=== PATIENT | male | born 1975 | race Caucasian/White ===

== ENCOUNTER 2017-01-04 15:07 | Outpatient (CLI) | payer OTHER ==
--- NOTE | 2017-01-04 16:01 | Diagnostic Imaging Report ---
Indication: Right elbow pain Technique: 3 views of the right elbow Comparison: None Findings: No acute fractures. No dislocations. Well-corticated ossific density adjacent to the olecranon on the lateral view may reflect old avulsion injury or dystrophic ossification Impression: No acute process
== END 2017-01-04 17:07 | disposition home or self-care (01) ==
LOC: RAD 15:07
DX: M79.631 Pain in right forearm (principal)

== ENCOUNTER → 2018-06-25 | Outpatient (CLI) | payer OTHER ==
--- NOTE | 2018-06-25 15:37 | Diagnostic Imaging Report ---
Indication: Neuropathy, neck pain status post injury on Monday Technique: Sagittal T1 FLAIR PROPELLER, sagittal T2 PROPELLOR, sagittal STIR, axial T2 PROPELLER, axial 3D COSMIC ASPIR images were obtained through the cervical spine Comparison: none Findings: The bony alignment is normal. The vertebral body heights are preserved. The disc spaces are preserved. The vertebral marrow signal is normal. At C3-4, there is mild right and moderate left neural foraminal narrowing. No significant disc bulge or protrusion or spinal stenosis. At C4-5, there is minimal broad-based posterior central disc protrusion with a small high intensity zone, which does not significantly narrow the spinal canal. The neural foramina are preserved. At C5-6, there is circumferential annular bulge. This does not significantly narrow the spinal canal. There is mild to moderate bilateral neural foraminal stenosis at this level, due predominantly uncinate hypertrophy. At C6-7, there is mild circumferential annular bulge. This does not significantly narrow the spinal canal. There is mild narrowing of the neural foramina bilaterally. At C7-T1, no significant disc bulge or protrusion, spinal stenosis, or neural foraminal narrowing. Impression: No acute bony trauma Mild degenerative changes as detailed above
--- NOTE | 2018-06-25 18:07 | Diagnostic Imaging Report ---
EXAM: MR Right Upper Extremity Without Intravenous Contrast, Shoulder CLINICAL HISTORY: PAIN TECHNIQUE: Multiplanar magnetic resonance images of the right shoulder without intravenous contrast. COMPARISON: No relevant prior studies available. FINDINGS: TENDONS: Supraspinatus: Unremarkable. Infraspinatus: Unremarkable. Subscapularis: Unremarkable. Teres minor: Unremarkable. Biceps brachii, long head: Intact long head of the biceps tendon. LIGAMENTS: Glenohumeral: Unremarkable. Muscles: Normal appearance of the muscles. Fluid: Tiny amount of fluid in the subacromial/submitted bursa is nonspecific but could potentially represent bursitis in the right clinical setting. Cartilage: Unremarkable. Glenoid labrum: No labral tear. Bones/joints: No rotator cuff tear. 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 Mild to moderate degenerative changes at the acromioclavicular joint. Type II acromion with slightly curved undersurface. No os acromiale. IMPRESSION: No rotator cuff or labral tear. Tiny amount of fluid in the subacromial/submitted bursa is nonspecific but could potentially represent bursitis in the right clinical setting. 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 Mild to moderate degenerative changes at the acromioclavicular joint. These findings may contribute to impingement signs or symptoms.
== END | disposition home or self-care (01) ==
LOC: MRI 09:13
DX: G56.90 Unspecified mononeuropathy of unspecified upper limb (principal)
CPT/HCPCS: 70250; 72141

== ENCOUNTER 2020-04-08 08:40 | Inpatient (IN) | payer OTHER ==
[~2020-04-08] VITALS: Ht 153.9 cm; Wt 78.0 kg
[2020-04-08] MEDS ORDERED: Morphine Sulfate 4mg/ml Inj (IV USE ONLY) IVP ONE (09:00)
[2020-04-08] MEDS ORDERED: Omnipaque-300 100ml vial INJ PRN (09:00)
--- NOTE | 2020-04-08 09:06 | Emergency Room Report ---
History of Present Illness General Chief Complaint: Nausea, Vomiting, and Diarrhea Present Illness HPI Disclaimer: Please note that this report is being documented using [employer]. This can lead to erroneous entry secondary to incorrect interpretation by the dictating instrument. HPI: 44-year-old male history of HIV on medication presents from home due to abdominal cramping with diarrhea and vomiting. This started last night around 8 PM. He reports 9 out of 10 abdominal cramping that is nonradiating. Patient states he feels feverish with chills. No coughing or shortness of breath. Denies sick contacts. He has a history of appendectomy as a child. No urinary complaints. 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 COVID-19 Screening: Negative COVID-19 COVID-19 Testing Source: nasal Patient History Reviewed Nursing Documentation: PMH: Agreed; PSxH: Agreed Review of Systems All Other Systems: negative except mentioned in HPI Physical Exam Vital Signs Date Time Temp Pulse Resp B/P (MAP) Pulse Ox O2 Delivery O2 Flow Rate FiO2 04/08/20 08:46 99.0 133 20 108/73 (85) 99 Room Air Sp02 EP Interpretation: reviewed, normal General Appearance: well appearing, no apparent distress Head: normocephalic, atraumatic Eyes: bilateral eye PERRL, bilateral eye EOMI ENT: hearing grossly normal, moist mucus membranes Neck: full range of motion, supple Respiratory: lungs clear, normal breath sounds, no rhonchi, no respiratory distress, no retraction, no wheezing Cardiovascular #1: normal peripheral pulses, no murmur, tachycardia Gastrointestinal: soft, non-distended, no guarding, tenderness - Mild periumbilical tenderness Neurologic: alert, oriented x3, no focal defects Skin: normal color, warm/dry Medical Decision Making Diagnostic Impression: Primary Impression: Colitis Additional Impressions: Nausea vomiting and diarrhea Hypoxia Interstitial lung disease ER Course MDM: Differential diagnosis included but not limited to gastroenteritis, colitis, diverticulitis to name a few Clinical course-IV inserted IV fluids given pain control given, laboratory studies and CT scan ordered. Laboratory studies demonstrate leukocytosis, elevated hemoglobin and mild lactic acidosis. CT scan did demonstrate evidence of colitis in addition to some interstitial lung disease. Over 19 testing was negative. In the ER patient given ciprofloxacin and Flagyl. IV fluids given as well. Due to patient's diffuse colitis, will admit to the medical floor for further management and observation. Patient admitted under Dr. Denny Labs - Laboratory Tests Test 04/08/20 09:00 04/08/20 10:30 04/08/20 13:00 White Blood Count 19.6 K/UL (4.8-10.8) H Red Blood Count 6.22 M/UL (4.70-6.10) H Hemoglobin 19.3 G/DL (14.2-18.0) *H Hematocrit 53.5 % (42.0-52.0) H Mean Corpuscular Volume 86 FL (80-99) Mean Corpuscular Hemoglobin 31.1 PG (27.0-31.0) H Mean Corpuscular Hemoglobin Concent 36.1 G/DL (32.0-36.0) H Red Cell Distribution Width 15.2 % (11.6-14.8) H Platelet Count 309 K/UL (150-450) Mean Platelet Volume 6.1 FL (6.5-10.1) L Neutrophils (%) (Auto) % (45.0-75.0) Lymphocytes (%) (Auto) % (20.0-45.0) Monocytes (%) (Auto) % (1.0-10.0) Eosinophils (%) (Auto) % (0.0-3.0) Basophils (%) (Auto) % (0.0-2.0) Differential Total Cells Counted 100 Neutrophils % (Manual) 93 % (45-75) H Lymphocytes % (Manual) 4 % (20-45) L Monocytes % (Manual) 3 % (1-10) Eosinophils % (Manual) 0 % (0-3) Basophils % (Manual) 0 % (0-2) Band Neutrophils 0 % (0-8) Platelet Estimate Adequate Platelet Morphology Normal Anisocytosis 1+ Sodium Level 136 MMOL/L (136-145) Potassium Level 3.8 MMOL/L (3.5-5.1) Chloride Level 100 MMOL/L (98-107) Carbon Dioxide Level 27 MMOL/L (21-32) Anion Gap 9 mmol/L (5-15) Blood Urea Nitrogen 16 mg/dL (7-18) Creatinine 1.4 MG/DL (0.55-1.30) H Estimated Glomerular Filtration Rate 55.1 mL/min (>60) Glucose Level 112 MG/DL (74-106) H Lactic Acid Level 2.20 mmol/L (0.4-2.0) H 1.10 mmol/L (0.66-2.22) Calcium Level 8.6 MG/DL (8.5-10.1) Total Bilirubin 0.8 MG/DL (0.2-1.0) Aspartate Amino Transferase (AST) 31 U/L (15-37) Alanine Aminotransferase (ALT) 54 U/L (12-78) Alkaline Phosphatase 42 U/L (46-116) L Total Protein 7.2 G/DL (6.4-8.2) Albumin 3.8 G/DL (3.4-5.0) Globulin 3.4 g/dL Albumin/Globulin Ratio 1.1 (1.0-2.7) Lipase 124 U/L (73-393) Urine Color Pale yellow Urine Appearance Clear Urine pH 5 (4.5-8.0) Urine Specific [place] 1.010 (1.005-1.035) Urine Protein 1+ (NEGATIVE) H Urine Glucose (UA) Negative (NEGATIVE) Urine Ketones 1+ (NEGATIVE) H Urine Blood 2+ (NEGATIVE) H Urine Nitrite Negative (NEGATIVE) Urine Bilirubin Negative (NEGATIVE) Urine Urobilinogen Normal MG/DL (0.0-1.0) Urine Leukocyte Esterase Negative (NEGATIVE) Urine RBC 0-2 /HPF (0 - 0) H Urine WBC 0 /HPF (0 - 0) Urine Squamous Epithelial Cells Occasional /LPF Urine Bacteria Occasional /HPF (NONE) Microbiology Date/Time Source Procedure Growth Status 04/08/20 10:08 Nasopharynx SARS-CoV-2 RdRp Gene Assay - Final Complete On reevaluation: Patient feeling improved Plan-admission to the medical floor CT/MRI/US Diagnostic Results CT/MRI/US Diagnostic Results : Imaging Test Ordered: CT scan abdomen and pelvis Impression Impression: Colon wall thickening, consistent with colitis, nonspecific as regards etiology. Bilateral interstitial lung disease. Correlate with clinical findings Findings discussed by phone with Dr. Morgan in the emergency room at the time of interpretation Last Vital Signs Date Time Temp Pulse Resp B/P (MAP) Pulse Ox O2 Delivery O2 Flow Rate FiO2 04/08/20 08:46 99.0 133 20 108/73 (85) 99 Room Air Status: improved Disposition: ADMITTED INPATIENT Condition: Serious Guillermo Morgan M.D. Apr 08, 2020 09:06
[2020-04-08 09:12] VITALS: BP 108/73
[2020-04-08 09:57] LABS: HEMATOCRIT 53.5 % (42.0-52.0); MEAN CORPUSCULAR VOLUME 86 FL (80-99); PLATELET COUNT 309 K/UL (150-450); RED BLOOD COUNT 6.22 M/UL (4.70-6.10); RED CELL DISTRIBUTION WIDTH 15.2 % (11.6-14.8); WHITE BLOOD COUNT 19.6 K/UL (4.8-10.8)
[2020-04-08 10:03] LABS: HEMOGLOBIN 19.3 G/DL (14.2-18.0)
[2020-04-08 10:06] LABS: CALCIUM 8.6 MG/DL (8.5-10.1); CREATININE 1.4 MG/DL (0.55-1.30); POTASSIUM 3.8 MMOL/L (3.5-5.1)
[2020-04-08 10:09] LABS: ALBUMIN 3.8 G/DL (3.4-5.0); ALBUMIN/GLOBULIN RATIO 1.1 (1.0-2.7); BILIRUBIN,TOTAL 0.8 MG/DL (0.2-1.0)
[2020-04-08 10:46] VITALS: BP 108/73
[2020-04-08 12:06] VITALS: BP 112/76
--- NOTE | 2020-04-08 12:31 | Diagnostic Imaging Report ---
Clinical Indication: Reason For Exam: PAIN Technique: No oral contrast utilized, per emergency room physician request IV administration nonionic contrast. Venous phase spiral acquisition obtained through the abdomen and pelvis. Multiplanar reconstructions were generated. Total dose length product 273 mGycm. CTDIvol(s) mGy. Dose reduction achieved using automated exposure control Comparison: none Findings: Lack of enteric contrast limits assessment of the GI tract. The appendix has been removed, per technologist report. There is wall thickening of the colon which is fairly diffuse, less striking proximally and more striking distally, extends to the rectum. No small bowel distention. No free or loculated intraperitoneal gas or fluid is evident. The distal esophagus, stomach, duodenum are unremarkable. The liver, gallbladder, bile ducts, pancreas, spleen, adrenals, kidneys are unremarkable. No retroperitoneal or mesenteric mass or adenopathy. And pelvic mass or adenopathy. The included lung bases demonstrate interstitial prominence. The bones are unremarkable. Impression: Colon wall thickening, consistent with colitis, nonspecific as regards etiology. Bilateral interstitial lung disease. Correlate with clinical findings Findings discussed by phone with Dr. Morgan in the emergency room at the time of interpretation The CT scanner at [facility] is accredited by the [employer] and the scans are performed using protocols designed to limit radiation exposure to as low as reasonably achievable to attain images of sufficient resolution adequate for diagnostic evaluation.
[2020-04-08 13:15] LABS: APPEARANCE,URINE CLEAR; BILIRUBIN, URINE NEGATIVE (NEGATIVE); COLOR,URINE PALE YELLOW; GLUCOSE, URINE (UA) NEGATIVE (NEGATIVE); KETONES,URINE 1+ (NEGATIVE); LEUKOCYTE ESTERASE ,URINE NEGATIVE (NEGATIVE); NITRITE,URINE NEGATIVE (NEGATIVE); PH,URINE 5 (4.5-8.0); PROTEIN,URINE 1+ (NEGATIVE); UROBILINOGEN,URINE NORMAL MG/DL (0.0-1.0)
[2020-04-08 15:20] VITALS: BP 104/61
--- NOTE | 2020-04-08 15:42 | Diagnostic Imaging Report ---
Indication: Shortness of breath Technique: One view of the chest Comparison: none Findings: Lungs and pleural spaces are clear. Heart size is normal. Impression: No acute process
[2020-04-08] MEDS ORDERED: Acetaminophen 500mg (ES) tab ORAL PRN (16:00)
--- NOTE | 2020-04-08 17:01 | Consultation ---
DATE OF CONSULTATION: 04/08/2020 CONSULTING PHYSICIAN: Dustin Gr MD REASON FOR ADMISSION: Colitis, hypoxia. HISTORY OF PRESENT ILLNESS: A 44-year-old male with history of HIV on medication, presented from home due to abdominal cramping with diarrhea and vomiting. Onset was around 8 p.m. last night. Patient reports 9/10 abdominal cramping that is nonradiating. Patient states he feels feverish. He was found to be hypoxic with saturation of 89% in the ER. He is now on room air, saturating well. Denies coughing, shortness of breath. Denies sick contacts. History of appendectomy as a child. Denies urinary complaints. On evaluation, he is on room air, alert and oriented and in moderate distress. Laboratory studies demonstrate leukocytosis, elevated hemoglobin and mild lactic acidosis. CT scan demonstrates evidence of colitis and bilateral interstitial lung disease. Patient tested negative for COVID-19 in the ER. Patient received antibiotics, IV fluids. Patient is now admitted due to diffuse colitis for further management and care. PAST MEDICAL HISTORY: HIV, on medication. SURGERIES: Appendectomy. ALLERGIES: No known allergies. REVIEW OF SYSTEMS: HEENT: Denies any headaches, blurry vision, hoarseness, dysphagia, hearing loss, tinnitus, or loss of balance. CHEST AND LUNGS: Denies any chest discomfort or hemoptysis. CARDIOVASCULAR: Denies any exertional chest pain, pressure, palpitation, orthopnea, PND, or ankle swelling. GASTROINTESTINAL: Vomiting, abdominal pain. Denies hematochezia. GENITOURINARY: Denies any frequency, urgency, dysuria, hematuria, flank pain, kidney stone, or kidney disease. NEUROLOGICAL: Denies seizure activity, dizziness, or fainting episodes. PHYSICAL EXAMINATION: VITAL SIGNS: Blood pressure 112/76, heart rate 112, respirations 20, weight 78 kg, height 170 cm. HEENT: Head exam reveals that the head is normocephalic, atraumatic without deformity or unusual swelling. Pupils are round, reactive to light and accommodation normally. There is no nystagmus, lid lag, or exophthalmos. Nasal mucosa is pink. Vision is normal. CHEST AND LUNGS: Reveals clear, normal, symmetrical breath sounds with no adventitious sounds. Expansion is normal. CARDIOVASCULAR: Tachycardia. No murmurs, rubs, or clicks. ABDOMEN: Tenderness to palpation. RECTAL: Deferred. MUSCULOSKELETAL: There is no tenderness to palpation. EXTREMITIES: There is no cyanosis, peripheral edema, or clubbing. There is no evidence of insufficiency or skin changes. NEUROLOGICAL: Cranial nerves II to XII are intact. LABORATORY DATA: CBC shows WBC 19.6, hemoglobin 19.3, hematocrit 53.5. Chemistry shows creatinine 1.4, glucose 112, lactic acid 2.2. Urinalysis shows 1+ protein, 1+ ketones, 2+ blood. IMPRESSION: 1. Colitis. 2. Interstitial lung disease. 3. Leukocytosis. 4. Respiratory distress. 5. HIV, on medications. 6. Diarrhea. RECOMMENDATIONS: Supplemental oxygen p.r.n., pain control, follow up interstitial lung disease. 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 The care for this patient was discussed with my supervising physician. Time spent for this case was approximately 31 minutes. Dustin Gr M.D. TREE Truj[place] DR: ALAINA JOB#: [id number] CC:
[2020-04-08 20:00] VITALS: BP 107/74
[2020-04-08] MEDS: metroNIDAZOLE 500mg tab ORAL SCH (21:05)
[2020-04-08] MEDS: Ciprofloxacin 500mg tab ORAL SCH (21:05)
[2020-04-08] MEDS: Acetaminophen 500mg (ES) tab ORAL PRN (21:13)
--- NOTE | 2020-04-08 23:30 | General Progress Note ---
Subjective Allergies: Coded Allergies: No Known Allergies (Unverified , 04/08/20) Objective Last 24 Hour Vital Signs Date Time Temp Pulse Resp B/P (MAP) Pulse Ox O2 Delivery O2 Flow Rate FiO2 04/08/20 17:03 99.0 04/08/20 15:25 Room Air 04/08/20 15:20 100.4 116 18 104/61 (75) 98 04/08/20 14:47 99.0 112 20 112/76 99 Room Air 04/08/20 12:06 99.0 112 20 112/76 99 Room Air 04/08/20 10:46 99.0 120 20 108/73 99 Room Air 04/08/20 09:32 99.0 04/08/20 09:12 99.0 20 108/73 99 Room Air 04/08/20 08:46 99.0 133 20 108/73 (85) 99 Room Air Laboratory Tests 04/08/20 09:00: White Blood Count 19.6H, Red Blood Count 6.22H, Hemoglobin 19.3*H, Hematocrit 53.5H, Mean Corpuscular Volume 86, Mean Corpuscular Hemoglobin 31.1H, Mean Corpuscular Hemoglobin Concent 36.1H, Red Cell Distribution Width 15.2H, Platelet Count 309, Mean Platelet Volume 6.1L, Neutrophils (%) (Auto) , Lymphocytes (%) (Auto) , Monocytes (%) (Auto) , Eosinophils (%) (Auto) , Basophils (%) (Auto) , Differential Total Cells Counted 100, Neutrophils % (Manual) 93H, Lymphocytes % (Manual) 4L, Monocytes % (Manual) 3, Eosinophils % (Manual) 0, Basophils % (Manual) 0, Band Neutrophils 0, Platelet Estimate Adequate, Platelet Morphology Normal, Anisocytosis 1+, Sodium Level 136, Potassium Level 3.8, Chloride Level 100, Carbon Dioxide Level 27, Anion Gap 9, Blood Urea Nitrogen 16, Creatinine 1.4H, Estimat Glomerular Filtration Rate 55.1, Glucose Level 112H, Lactic Acid Level 2.20H, Calcium Level 8.6, Total Bilirubin 0.8, Aspartate Amino Transf (AST/SGOT) 31, Alanine Aminotransferase (ALT/SGPT) 54, Alkaline Phosphatase 42L, Total Protein 7.2, Albumin 3.8, Globulin 3.4, Albumin/Globulin Ratio 1.1, Lipase 124 04/08/20 10:30: Lactic Acid Level 1.10 04/08/20 13:00: Urine Color Pale yellow, Urine Appearance Clear, Urine pH 5, Urine Specific [place] 1.010, Urine Protein 1+H, Urine Glucose (UA) Negative, Urine Ketones 1+H , Urine Blood 2+H, Urine Nitrite Negative, Urine Bilirubin Negative, Urine Urobilinogen Normal, Urine Leukocyte Esterase Negative, Urine RBC 0-2H, Urine WBC 0, Urine Squamous Epithelial Cells Occasional, Urine Bacteria Occasional Height (Feet): 5 Height (Inches): 0.58 Weight (Pounds): 172 Assessment/Plan Assessment/Plan: Assessment - Acute diarrheal syndrome - Colitis per CT appearance - HIV (+), well controlled Recommendations - IV hydration - po as tolerated - complete stool cultures - abx Thank you MD Kalani Harvey Payman MD Apr 08, 2020 23:30
[2020-04-09] VITALS: BP 108/67
--- NOTE | 2020-04-09 00:44 | History and Physical Report ---
DATE OF ADMISSION: 04/08/2020 HISTORY OF PRESENT ILLNESS: The patient comes in with abdominal pain, diarrhea, mild vomiting for approximately 1 day. The patient has a history of drug abuse, history of alcohol abuse, history of smoking. The patient's CT scan showed diffuse colitis and interstitial lung disease. The patient also had leukocytosis and elevated hemoglobin level. The patient apparently has a history of HIV. Admitted for those reasons. PAST MEDICAL HISTORY: Immune deficiency and GERD. PAST SURGICAL HISTORY: Appendectomy. SOCIAL HISTORY: He has a history of smoking, history of drug abuse, history of alcohol abuse. ALLERGIES: No known allergies. MEDICATIONS: None. FAMILY HISTORY: Noncontributory. REVIEW OF SYSTEMS: HEENT: Denies headaches. PULMONARY: Denies shortness of breath. Denies cough. CARDIOVASCULAR: Denies chest pain. Denies orthopnea. GI: Reports abdominal pain, diarrhea, mild vomiting for about a day. Denies any rectal bleeding. EXTREMITIES: Denies pain in lower extremities. NEUROLOGIC: Denies change in speech pattern. Feels weak. PHYSICAL EXAMINATION: VITAL SIGNS: Temperature is 99, pulse is 112, blood pressure is 112/76. HEENT: PERRLA. NECK: Supple. No lymphadenopathy. CHEST: Clear to auscultation. CARDIOVASCULAR: Regular rate and rhythm. No murmurs or extra sounds. GASTROINTESTINAL: Soft, nontender, nondistended. No organomegaly. EXTREMITIES: No edema. Moves all four extremities. NEUROLOGIC: Sensory is intact to light touch. Reflexes on both sides. LABORATORY DATA: WBC of 19.6, hemoglobin 19.3, platelets 309. Sodium 136, potassium 3.8, BUN of 16, creatinine 1.4. ASSESSMENT AND PLAN: 1. Immunodeficiency syndrome. 2. Diarrhea. 3. The patient . 4. Abdominal pain. CT shows diffuse interstitial lung disease and colitis. I have basically consulted Dr. Uriarte, Dr. Dustin Gr, Dr. Ernst Parry, Dr. Colt Hurd to help with the management of the above-mentioned abnormal symptoms and imaging as well as abnormal labs. Antibiotics per Dr. Ernst Parry. Jesús Denny M.D. DR: YANELIS JOB#: [id number] CC:
--- NOTE | 2020-04-09 01:15 | Consultation ---
DATE OF CONSULTATION: 04/08/2020 GASTROENTEROLOGY CONSULTATION CONSULTING PHYSICIAN: Darwin Uriarte MD CHIEF COMPLAINT: I was asked to see this patient for evaluation of diarrhea and abnormal CT scan. HISTORY OF PRESENT ILLNESS: The patient is a 44-year-old man who was in his usual state of health until about a day or so before admission when he started having abdominal discomfort, nausea, a small amount of vomiting, and profuse diarrhea. He came to the emergency room where a CT scan showed diffuse colitis and a consideration has been made be to admit him to the hospital. Patient states that he had some nausea and vomiting, but that resolved. PAST MEDICAL HISTORY: History of HIV positivity with undetectable viral load and T-cell count in the 800 range. FAMILY HISTORY: Negative for liver disorders or inflammatory bowel disease. SOCIAL HISTORY: Patient does not smoke or drink alcohol. REVIEW OF SYSTEMS: Otherwise negative. PHYSICAL EXAMINATION: GENERAL: Well-developed, well-nourished young man, seen in his room. HEENT: Normocephalic and atraumatic. NECK: Supple. CHEST: Clear to auscultation. CARDIAC: Revealed a regular rate. ABDOMEN: Soft. Mildly tender diffusely. EXTREMITIES: Revealed no edema. LABORATORY DATA AND IMAGING STUDIES: Reviewed. ASSESSMENT: Patient presents with new-onset symptoms of nausea, vomiting, and profuse diarrhea with CT imaging showing colitis. The patient pathology including Clostridium difficile and stool for bacterial pathogens. . Should the patient's symptoms persist and the stool evaluation is negative, then endoscopic evaluation may be necessary. RECOMMENDATIONS: Per above discussion and per orders written in the chart. Thank you for asking me to participate in the care of this patient. Darwin Uriarte M.D. DR: JOSE C JOB#: [id number] CC:
[2020-04-09 04:00] VITALS: BP 105/59
[2020-04-09] MEDS: metroNIDAZOLE 500mg tab ORAL SCH ×3 (05:35→21:52)
[2020-04-09] MEDS: Acetaminophen 500mg (ES) tab ORAL PRN (05:39)
--- NOTE | 2020-04-09 06:45 | Consultation ---
History of Present Illness General Chief Complaint: Nausea, Vomiting, and Diarrhea Present Illness Allergies: Coded Allergies: No Known Allergies (Unverified , 04/08/20) Patient History Healthcare decision maker N Resuscitation status Advanced Directive on File Physical Exam Last 24 Hour Vital Signs Date Time Temp Pulse Resp B/P (MAP) Pulse Ox O2 Delivery O2 Flow Rate FiO2 04/09/20 00:00 99.4 100 16 108/67 (81) 94 04/08/20 21:00 Room Air 04/08/20 20:00 98.4 117 16 107/74 (85) 95 04/08/20 17:03 99.0 04/08/20 15:25 Room Air 04/08/20 15:20 100.4 116 18 104/61 (75) 98 04/08/20 14:47 99.0 112 20 112/76 99 Room Air 04/08/20 12:06 99.0 112 20 112/76 99 Room Air 04/08/20 10:46 99.0 120 20 108/73 99 Room Air 04/08/20 09:32 99.0 04/08/20 09:12 99.0 20 108/73 99 Room Air 04/08/20 08:46 99.0 133 20 108/73 (85) 99 Room Air Intake and Output 04/08/20 04/09/20 19:00 07:00 Intake Total 2300 ml Balance 2300 ml Intake Oral 0 ml IV Total 2300 ml # Bowel Movements 1 Laboratory Tests Test 04/08/20 09:00 04/08/20 10:30 04/08/20 13:00 White Blood Count 19.6 K/UL (4.8-10.8) H Red Blood Count 6.22 M/UL (4.70-6.10) H Hemoglobin 19.3 G/DL (14.2-18.0) *H Hematocrit 53.5 % (42.0-52.0) H Mean Corpuscular Volume 86 FL (80-99) Mean Corpuscular Hemoglobin 31.1 PG (27.0-31.0) H Mean Corpuscular Hemoglobin Concent 36.1 G/DL (32.0-36.0) H Red Cell Distribution Width 15.2 % (11.6-14.8) H Platelet Count 309 K/UL (150-450) Mean Platelet Volume 6.1 FL (6.5-10.1) L Neutrophils (%) (Auto) % (45.0-75.0) Lymphocytes (%) (Auto) % (20.0-45.0) Monocytes (%) (Auto) % (1.0-10.0) Eosinophils (%) (Auto) % (0.0-3.0) Basophils (%) (Auto) % (0.0-2.0) Differential Total Cells Counted 100 Neutrophils % (Manual) 93 % (45-75) H Lymphocytes % (Manual) 4 % (20-45) L Monocytes % (Manual) 3 % (1-10) Eosinophils % (Manual) 0 % (0-3) Basophils % (Manual) 0 % (0-2) Band Neutrophils 0 % (0-8) Platelet Estimate Adequate Platelet Morphology Normal Anisocytosis 1+ Sodium Level 136 MMOL/L (136-145) Potassium Level 3.8 MMOL/L (3.5-5.1) Chloride Level 100 MMOL/L (98-107) Carbon Dioxide Level 27 MMOL/L (21-32) Anion Gap 9 mmol/L (5-15) Blood Urea Nitrogen 16 mg/dL (7-18) Creatinine 1.4 MG/DL (0.55-1.30) H Estimat Glomerular Filtration Rate 55.1 mL/min (>60) Glucose Level 112 MG/DL (74-106) H Lactic Acid Level 2.20 mmol/L (0.4-2.0) H 1.10 mmol/L (0.66-2.22) Calcium Level 8.6 MG/DL (8.5-10.1) Total Bilirubin 0.8 MG/DL (0.2-1.0) Aspartate Amino Transf (AST/SGOT) 31 U/L (15-37) Alanine Aminotransferase (ALT/SGPT) 54 U/L (12-78) Alkaline Phosphatase 42 U/L (46-116) L Total Protein 7.2 G/DL (6.4-8.2) Albumin 3.8 G/DL (3.4-5.0) Globulin 3.4 g/dL Albumin/Globulin Ratio 1.1 (1.0-2.7) Lipase 124 U/L (73-393) Urine Color Pale yellow Urine Appearance Clear Urine pH 5 (4.5-8.0) Urine Specific [place] 1.010 (1.005-1.035) Urine Protein 1+ (NEGATIVE) H Urine Glucose (UA) Negative (NEGATIVE) Urine Ketones 1+ (NEGATIVE) H Urine Blood 2+ (NEGATIVE) H Urine Nitrite Negative (NEGATIVE) Urine Bilirubin Negative (NEGATIVE) Urine Urobilinogen Normal MG/DL (0.0-1.0) Urine Leukocyte Esterase Negative (NEGATIVE) Urine RBC 0-2 /HPF (0 - 0) H Urine WBC 0 /HPF (0 - 0) Urine Squamous Epithelial Cells Occasional /LPF Urine Bacteria Occasional /HPF (NONE) Microbiology Date/Time Source Procedure Growth Status 04/08/20 10:08 Nasopharynx SARS-CoV-2 RdRp Gene Assay - Final Complete Height (Feet): 5 Height (Inches): 0.58 Weight (Pounds): 172 Medications Current Medications Medications (Trade) Dose Ordered Sig/Juan Route PRN Reason Start Time Stop Time Status Last Admin Dose Admin Acetaminophen (Tylenol) 500 mg Q4H PRN ORAL Mild Pain (Pain Scale 1-3) 04/08/20 15:45 05/08/20 15:44 04/09/20 05:39 Acetaminophen (Tylenol) 500 mg Q4H PRN ORAL TEMP > 100.4 04/08/20 16:00 05/08/20 15:59 04/08/20 16:33 Ciprofloxacin (Cipro 500mg tab) 500 mg EVERY 12 HOURS ORAL 04/08/20 21:00 04/15/20 20:59 04/08/20 21:05 Iohexol (OMNIPAQUE-300 100ml) 100 ml NOW PRN INJ Radiology Procedure 04/08/20 09:00 04/10/20 08:59 Metronidazole (Flagyl) 500 mg Q8HR ORAL 04/08/20 22:00 04/15/20 21:59 04/09/20 05:35 Assessment/Plan Assessment/Plan: Hematology Consultation REQ : Jesús Deutsch [facility]: Immunodeficiency syndrome DOS: 04/09/20 ID 44-year-old male history of HIV on medication presents from home due to abdominal cramping with diarrhea and vomiting. This started last night around 8 PM. He reports 9 out of 10 abdominal cramping that is nonradiating. Patient states he feels feverish with chills. No coughing or shortness of breath. Denies sick contacts. He has a history of appendectomy as a child. No urinary complaints. Noted with colitis, heme consulted. 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 COVID-19 Screening: Negative COVID-19 COVID-19 Testing Source: nasal Patient History Reviewed Nursing Documentation: PMH: Agreed; PSxH: Agreed Review of Systems All Other Systems: negative except mentioned in HPI Physical Exam Sp02 EP Interpretation: reviewed, normal General: well appearing, no apparent distress Heent: bilateral eye PERRL, bilateral eye EOMI Neck: full range of motion, supple Respiratory: lungs clear, normal breath sounds, no rhonchi, no respiratory distress, no retraction, no wheezing Cardiovascular: normal peripheral pulses, no murmur, tachycardia Gastrointestinal: soft, non-distended, no guarding, tenderness - Mild periumbilical tenderness Neurologic: alert, oriented x3, no focal defects Skin: normal color, warm/dry Labs: noted Imaging: reviewed Assessment and Recs # Erythrocytosis is likely at this time hemoconcentrated -> will give ivfs as also with colitis and unable to tolerate Pos --> erythropoietin has been ordered --> ct ruled out renal mass --> hgb 19 # Leukocytosis likely related to infection/diarrhea --> wbc 17 --> per ID ABX cirpo/flagyl --> smear reviewed # Colitis --> per gi care # Nausea vomiting and diarrhea --> zofran prn # Hypoxia -> per pulm recs # Interstitial lung disease # Dvt ppx ambulation Appreciate consultation and dw Colt Connelly MD Apr 09, 2020 06:45
[2020-04-09 08:00] VITALS: BP_SYST 105; BP_SYST 92; BP_DIAS 58; BP_DIAS 59
[2020-04-09] MEDS: Ciprofloxacin 500mg tab ORAL SCH ×2 (09:00→21:52)
[2020-04-09 09:18] LABS: BASOPHILS % (AUTO) 0.8 % (0.0-2.0); EOSINOPHILS % (AUTO) 0.3 % (0.0-3.0); HEMATOCRIT 50.8 % (42.0-52.0); HEMOGLOBIN 17.9 G/DL (14.2-18.0); LYMPHOCYTES % (AUTO) 18.1 % (20.0-45.0); MEAN CORPUSCULAR VOLUME 89 FL (80-99); MONOCYTES % (AUTO) 10.6 % (1.0-10.0); NEUTROPHILS % (AUTO) 70.2 % (45.0-75.0); PLATELET COUNT 201 K/UL (150-450); RED BLOOD COUNT 5.72 M/UL (4.70-6.10); RED CELL DISTRIBUTION WIDTH 13.9 % (11.6-14.8); WHITE BLOOD COUNT 6.6 K/UL (4.8-10.8)
[2020-04-09 09:41] LABS: ALANINE AMINOTRANSFERASE 45 U/L (12-78); ALBUMIN 2.9 G/DL (3.4-5.0); ALBUMIN/GLOBULIN RATIO 0.9 (1.0-2.7); ALKALINE PHOSPHATASE 33 U/L (46-116); ANION GAP 5 mmol/L (5-15); ASPARTATE AMINO TRANSFERASE 27 U/L (15-37); BILIRUBIN,TOTAL 0.4 MG/DL (0.2-1.0); BLOOD UREA NITROGEN 11 mg/dL (7-18); CARBON DIOXIDE 27 MMOL/L (21-32); CHLORIDE 103 MMOL/L (98-107); CREATININE 1.1 MG/DL (0.55-1.30); POTASSIUM 3.4 MMOL/L (3.5-5.1); SODIUM 135 MMOL/L (136-145)
--- NOTE | 2020-04-09 10:36 | Pulmonology Progress Note ---
Subjective ROS Limited/Unobtainable: No Interval Events: loose dark green stools, stool sample collected; C. diff neg Constitutional: Denies: fever, chills HEENT: Repors: no symptoms Respiratory: Reports: no symptoms Cardiovascular: Reports: no symptoms Gastrointestinal/Abdominal: Reports: nausea, vomiting, diarrhea, blood in stool Genitourinary: Reports: no symptoms Neurologic: Reports: no symptoms Allergies: Coded Allergies: No Known Allergies (Unverified , 04/08/20) Objective Last 24 Hour Vital Signs Date Time Temp Pulse Resp B/P (MAP) Pulse Ox O2 Delivery O2 Flow Rate FiO2 04/09/20 04:00 98.1 104 16 105/59 (74) 96 04/09/20 00:00 99.4 100 16 108/67 (81) 94 04/08/20 21:00 Room Air 04/08/20 20:00 98.4 117 16 107/74 (85) 95 04/08/20 17:03 99.0 04/08/20 15:25 Room Air 04/08/20 15:20 100.4 116 18 104/61 (75) 98 04/08/20 14:47 99.0 112 20 112/76 99 Room Air 04/08/20 12:06 99.0 112 20 112/76 99 Room Air 04/08/20 10:46 99.0 120 20 108/73 99 Room Air Intake and Output 04/08/20 04/09/20 19:00 07:00 Intake Total 2300 ml 400 ml Balance 2300 ml 400 ml Intake Oral 0 ml IV Total 2300 ml Other 400 ml # Voids 3 # Bowel Movements 1 3 Objective 04/09/2020 pt still in pain; tachy; saturating well on RA General Appearance: WD/WN HEENT: normocephalic, atraumatic Respiratory: chest wall non-tender, lungs clear Cardiovascular: regular rhythm Abdomen: tender Microbiology Date/Time Source Procedure Growth Status 04/08/20 21:00 Stool Clostridium difficile Toxin Assay - Final Complete 04/08/20 10:08 Nasopharynx SARS-CoV-2 RdRp Gene Assay - Final Complete Laboratory Tests 04/08/20 13:00: Urine Color Pale yellow, Urine Appearance Clear, Urine pH 5, Urine Specific [place] 1.010, Urine Protein 1+H, Urine Glucose (UA) Negative, Urine Ketones 1+H , Urine Blood 2+H, Urine Nitrite Negative, Urine Bilirubin Negative, Urine Urobilinogen Normal, Urine Leukocyte Esterase Negative, Urine RBC 0-2H, Urine WBC 0, Urine Squamous Epithelial Cells Occasional, Urine Bacteria Occasional 04/09/20 09:05: White Blood Count 6.6#, Red Blood Count 5.72, Hemoglobin 17.9, Hematocrit 50.8, Mean Corpuscular Volume 89, Mean Corpuscular Hemoglobin 31.2H, Mean Corpuscular Hemoglobin Concent 35.2, Red Cell Distribution Width 13.9, Platelet Count 201, Mean Platelet Volume 6.4L, Neutrophils (%) (Auto) 70.2, Lymphocytes (%) (Auto) 18.1L, Monocytes (%) (Auto) 10.6H, Eosinophils (%) (Auto) 0.3, Basophils (%) (Auto) 0.8, Sodium Level 135L, Potassium Level 3.4L, Chloride Level 103, Carbon Dioxide Level 27, Anion Gap 5, Blood Urea Nitrogen 11, Creatinine 1.1, Estimat Glomerular Filtration Rate > 60, Glucose Level 95, Calcium Level 8.0L, Total Bilirubin 0.4, Aspartate Amino Transf (AST/SGOT) 27, Alanine Aminotransferase (ALT/SGPT) 45, Alkaline Phosphatase 33L, Total Protein 6.2L, Albumin 2.9L, Globulin 3.3, Albumin/Globulin Ratio 0.9L Current Medications Medications (Trade) Dose Ordered Sig/Juan Route PRN Reason Start Time Stop Time Status Last Admin Dose Admin Acetaminophen (Tylenol) 500 mg Q4H PRN ORAL Mild Pain (Pain Scale 1-3) 04/08/20 15:45 05/08/20 15:44 04/09/20 05:39 Acetaminophen (Tylenol) 500 mg Q4H PRN ORAL TEMP > 100.4 04/08/20 16:00 05/08/20 15:59 04/08/20 16:33 Ciprofloxacin (Cipro 500mg tab) 500 mg EVERY 12 HOURS ORAL 04/08/20 21:00 04/15/20 20:59 04/09/20 09:00 Iohexol (OMNIPAQUE-300 100ml) 100 ml NOW PRN INJ Radiology Procedure 04/08/20 09:00 04/10/20 08:59 Metronidazole (Flagyl) 500 mg Q8HR ORAL 04/08/20 22:00 04/15/20 21:59 04/09/20 05:35 Assessment/Plan Assessment/Plan 1. Colitis. - per GI care 2. Interstitial lung disease. - upon further review of the CT of the chest, lung pathology is unlikely; no interstital process seen - CXR showed no acute process as well 3. Leukocytosis. - On Abx cipro/flagyl per ID 4. Respiratory distress. - currently saturating well on RA - provided supplemental oxygen as needed 5. HIV, on medications. 6. Diarrhea. - C. diff neg - on clear liquid diet We will follow as pulmonologists as needed The care for this patient was discussed with my supervising physician. Time spent for this case was approximately 31 minutes. Kalin Maher Apr 09, 2020 10:36 Dustin Gr MD Apr 09, 2020 17:31
[2020-04-09 12:00] VITALS: BP 96/63
[2020-04-09 16:00] VITALS: BP 111/67
--- NOTE | 2020-04-09 17:30 | Consultation ---
DATE OF CONSULTATION: 04/09/2020 INFECTIOUS DISEASE CONSULTATION CONSULTING PHYSICIAN: Ernst Parry MD PRIMARY ATTENDING PHYSICIAN: Jesús Denny MD REASON FOR CONSULTATION: Sepsis, colitis, HIV. HISTORY OF PRESENT ILLNESS: This is a 44-year-old white male admitted yesterday from home complaining of recurrent abdominal pain that is increased with bowel movements. He has diarrhea and blood in his stool. He had vomiting yesterday. Symptoms started two days ago. Leukocytosis of 19.6 at the time of admission. He had maximum temperature of 100 and had tachycardia with heart rate up to 133. PAST MEDICAL HISTORY: HIV for 15 years getting Biktarvy, CD4 count stays between 600 and 900, and has history of hyperlipidemia. PAST SURGICAL HISTORY: Appendectomy in childhood. ALLERGIES: No known drug allergy. MEDICATIONS: Getting Flagyl, Cipro, and Tylenol. SOCIAL HISTORY: States he is . Denies alcohol, drug abuse, or smoking. REVIEW OF SYSTEMS: No fever today. No coughing. No nausea. No vomiting. He still has crampy abdominal pain and diarrhea. No problem passing urine. PHYSICAL EXAMINATION: VITAL SIGNS: Temperature 98.3, pulse 95, blood pressure 92/58. GENERAL: He seems to be well developed. HEAD AND NECK: Slightly dry mouth. HEART: Normal rate. LUNGS: Clear. ABDOMEN: Soft, flat. Tender in midline. EXTREMITIES: He has no edema. LABORATORY AND DIAGNOSTIC DATA: Sodium 135, potassium 3.4, chloride 103, bicarb 27, BUN 11, creatinine 1.1. Glucose is 95. WBC today is 6.6; hemoglobin 17.9, hemoglobin at the time of admission was 19.3; hematocrit 50.8; and platelet is 201,000. UA was negative. Chest x-ray was negative. CT scan of the abdomen and pelvis showed colon wall thickening consistent with colitis. C. difficile test was negative. COVID-19 test was negative. IMPRESSION: 1. Sepsis with tachycardia, leukocytosis, and low-grade fever. 2. Colitis may be infectious. 3. HIV. 4. Leukocytosis that is improving. 5. Hyperlipidemia. RECOMMENDATIONS: Continue Cipro and Flagyl. We will follow up the cultures. At the end of my exam, I thank Dr. Denny for involving me in the care of this patient. Ernst Prary M.D. DR: HAKEEM JOB#: [id number] CC:
[2020-04-09 20:00] VITALS: BP 105/60
--- NOTE | 2020-04-09 21:19 | General Progress Note ---
Subjective ROS Limited/Unobtainable: Yes Allergies: Coded Allergies: No Known Allergies (Unverified , 04/08/20) Objective Last 24 Hour Vital Signs Date Time Temp Pulse Resp B/P (MAP) Pulse Ox O2 Delivery O2 Flow Rate FiO2 04/09/20 16:00 98.8 81 18 111/67 (82) 95 04/09/20 12:00 97.5 83 18 96/63 (74) 96 04/09/20 09:00 Room Air 04/09/20 08:00 () 04/09/20 08:00 98.3 95 18 92/58 (69) 96 04/09/20 04:00 98.1 104 16 105/59 (74) 96 04/09/20 00:00 99.4 100 16 108/67 (81) 94 Intake and Output 04/08/20 04/09/20 19:00 07:00 Intake Total 2300 ml 400 ml Balance 2300 ml 400 ml Intake Oral 0 ml IV Total 2300 ml Other 400 ml # Voids 3 # Bowel Movements 1 3 Laboratory Tests 04/09/20 09:05: White Blood Count 6.6#, Red Blood Count 5.72, Hemoglobin 17.9, Hematocrit 50.8, Mean Corpuscular Volume 89, Mean Corpuscular Hemoglobin 31.2H, Mean Corpuscular Hemoglobin Concent 35.2, Red Cell Distribution Width 13.9, Platelet Count 201, Mean Platelet Volume 6.4L, Neutrophils (%) (Auto) 70.2, Lymphocytes (%) (Auto) 18.1L, Monocytes (%) (Auto) 10.6H, Eosinophils (%) (Auto) 0.3, Basophils (%) (Auto) 0.8, Sodium Level 135L, Potassium Level 3.4L, Chloride Level 103, Carbon Dioxide Level 27, Anion Gap 5, Blood Urea Nitrogen 11, Creatinine 1.1, Estimat Glomerular Filtration Rate > 60, Glucose Level 95, Calcium Level 8.0L, Total Bilirubin 0.4, Aspartate Amino Transf (AST/SGOT) 27, Alanine Aminotransferase (ALT/SGPT) 45, Alkaline Phosphatase 33L, Total Protein 6.2L, Albumin 2.9L, Gl obulin 3.3, Albumin/Globulin Ratio 0.9L Height (Feet): 5 Height (Inches): 0.58 Weight (Pounds): 172 Assessment/Plan Problem List: (1) Nausea vomiting and diarrhea ICD Codes: R11.2 - Nausea with vomiting, unspecified; R19.7 - Diarrhea, unspecified SNOMED: 5258052 (2) Colitis ICD Codes: K52.9 - Noninfective gastroenteritis and colitis, unspecified; R19.7 - Diarrhea, unspecified SNOMED: 55052195 Status: progressing Assessment/Plan: hiv vomitting diarhhrea check stool cx afebrile dehydration check Jesús Cm MD Apr 09, 2020 21:19
[2020-04-10] VITALS: BP 108/67
[2020-04-10 04:00] VITALS: BP 111/65
[2020-04-10] MEDS: metroNIDAZOLE 500mg tab ORAL SCH ×2 (05:24→14:00)
[2020-04-10 06:43] LABS: BASOPHILS % (AUTO) 1.4 % (0.0-2.0); EOSINOPHILS % (AUTO) 1.5 % (0.0-3.0); HEMATOCRIT 47.7 % (42.0-52.0); HEMOGLOBIN 16.7 G/DL (14.2-18.0); LYMPHOCYTES % (AUTO) 31.1 % (20.0-45.0); MEAN CORPUSCULAR VOLUME 89 FL (80-99); MONOCYTES % (AUTO) 10.7 % (1.0-10.0); NEUTROPHILS % (AUTO) 55.4 % (45.0-75.0); PLATELET COUNT 207 K/UL (150-450); RED BLOOD COUNT 5.39 M/UL (4.70-6.10); RED CELL DISTRIBUTION WIDTH 13.4 % (11.6-14.8)
[2020-04-10 06:58] LABS: ANION GAP 7 mmol/L (5-15); BLOOD UREA NITROGEN 13 mg/dL (7-18); CALCIUM 7.8 MG/DL (8.5-10.1); CARBON DIOXIDE 27 MMOL/L (21-32); CHLORIDE 104 MMOL/L (98-107); CREATININE 1.1 MG/DL (0.55-1.30); POTASSIUM 3.4 MMOL/L (3.5-5.1); SODIUM 138 MMOL/L (136-145)
--- NOTE | 2020-04-10 08:08 | Hematology/Onc Progress Note ---
Assessment/Plan Assessment/Plan Assessment and Recs # Erythrocytosis is likely at this time hemoconcentrated -> will give ivfs as also with colitis and unable to tolerate Pos --> erythropoietin has been ordered --> ct ruled out renal mass --> hgb 19-->16 # Leukocytosis likely related to infection/diarrhea --> wbc 17-->6 --> per ID ABX cirpo/flagyl --> smear reviewed # Colitis --> per gi care # Nausea vomiting and diarrhea --> zofran prn # Hypoxia -> per pulm recs # Interstitial lung disease # Dvt ppx ambulation Appreciate consultation and dw RN Subjective Constitutional: Denies: no symptoms, chills, fever, malaise, weakness, other HEENT: Denies: no symptoms, eye pain, blurred vision, tearing, double vision, ear pain, ear discharge, nose pain, nose congestion, throat pain, throat swelling, mouth pain, mouth swelling, other Cardiovascular: Denies: no symptoms, chest pain, edema, irregular heart rate, lightheadedness, palpitations, syncope, other Gastrointestinal/Abdominal: Denies: no symptoms, abdomen distended, abdominal pain, black stools, tarry stools, blood in stool, constipated, diarrhea, difficulty swallowing, nausea, poor appetite, poor fluid intake, rectal bleeding, vomiting, other Genitourinary: Denies: no symptoms, burning, discharge, frequency, flank pain, hematuria, incontinence, pain, urgency, other Neurologic/Psychiatric: Denies: no symptoms, anxiety, depressed, emotional problems, headache, numbness, paresthesia, pre-existing deficit, seizure, tin gling, tremors, weakness, other Endocrine: Denies: no symptoms, excessive sweating, flushing, intolerance to cold, intolerance to heat, increased hunger, increased thirst, increased urine, unexplained weight gain, unexplained weight loss, other Allergies: Coded Allergies: No Known Allergies (Unverified , 04/08/20) Subjective 04/10 meds noted, no bleeding, no major events, labs reviewed Objective Objective Current Medications Medications (Trade) Dose Ordered Sig/Juan Route PRN Reason Start Time Stop Time Status Last Admin Dose Admin Acetaminophen (Tylenol) 500 mg Q4H PRN ORAL Mild Pain (Pain Scale 1-3) 04/08/20 15:45 05/08/20 15:44 04/09/20 05:39 Acetaminophen (Tylenol) 500 mg Q4H PRN ORAL TEMP > 100.4 04/08/20 16:00 05/08/20 15:59 04/08/20 16:33 Ciprofloxacin (Cipro 500mg tab) 500 mg EVERY 12 HOURS ORAL 04/08/20 21:00 04/15/20 20:59 04/09/20 21:52 Iohexol (OMNIPAQUE-300 100ml) 100 ml NOW PRN INJ Radiology Procedure 04/08/20 09:00 04/10/20 08:59 Metronidazole (Flagyl) 500 mg Q8HR ORAL 04/08/20 22:00 04/15/20 21:59 04/10/20 05:24 Last 24 Hour Vital Signs Date Time Temp Pulse Resp B/P (MAP) Pulse Ox O2 Delivery O2 Flow Rate FiO2 04/10/20 04:00 98.1 82 20 111/65 (80) 97 04/10/20 00:00 98.7 80 18 108/67 (81) 95 04/09/20 21:00 Room Air 04/09/20 20:00 98.6 18 105/60 (75) 96 04/09/20 16:00 98.8 81 18 111/67 (82) 95 04/09/20 12:00 97.5 83 18 96/63 (74) 96 04/09/20 09:00 Room Air 04/09/20 08:00 () 04/09/20 08:00 98.3 95 18 92/58 (69) 96 04/09/20 04:00 98.1 104 16 105/59 (74) 96 04/09/20 00:00 99.4 100 16 108/67 (81) 94 04/08/20 21:00 Room Air 04/08/20 20:00 98.4 117 16 107/74 (85) 95 04/08/20 17:03 99.0 04/08/20 15:25 Room Air 04/08/20 15:20 100.4 116 18 104/61 (75) 98 04/08/20 14:47 99.0 112 20 112/76 99 Room Air 04/08/20 12:06 99.0 112 20 112/76 99 Room Air 04/08/20 10:46 99.0 120 20 108/73 99 Room Air 04/08/20 09:32 99.0 04/08/20 09:12 99.0 20 108/73 99 Room Air 04/08/20 08:46 99.0 133 20 108/73 (85) 99 Room Air Intake and Output 04/09/20 04/10/20 19:00 07:00 Intake Total 840 ml 400 ml Balance 840 ml 400 ml Intake Oral 840 ml 400 ml # Voids 2 # Bowel Movements 3 1 Labs Test 04/08/20 09:00 04/08/20 10:30 04/08/20 13:00 04/09/20 09:05 White Blood Count 19.6 K/UL (4.8-10.8) 6.6 K/UL (4.8-10.8) Red Blood Count 6.22 M/UL (4.70-6.10) 5.72 M/UL (4.70-6.10) Hemoglobin 19.3 G/DL (14.2-18.0) 17.9 G/DL (14.2-18.0) Hematocrit 53.5 % (42.0-52.0) 50.8 % (42.0-52.0) Mean Corpuscular Volume 86 FL (80-99) 89 FL (80-99) Mean Corpuscular Hemoglobin 31.1 PG (27.0-31.0) 31.2 PG (27.0-31.0) Mean Corpuscular Hemoglobin Concent 36.1 G/DL (32.0-36.0) 35.2 G/DL (32.0-36.0) Red Cell Distribution Width 15.2 % (11.6-14.8) 13.9 % (11.6-14.8) Platelet Count 309 K/UL (150-450) 201 K/UL (150-450) Mean Platelet Volume 6.1 FL (6.5-10.1) 6.4 FL (6.5-10.1) Neutrophils (%) (Auto) % (45.0-75.0) 70.2 % (45.0-75.0) Lymphocytes (%) (Auto) % (20.0-45.0) 18.1 % (20.0-45.0) Monocytes (%) (Auto) % (1.0-10.0) 10.6 % (1.0-10.0) Eosinophils (%) (Auto) % (0.0-3.0) 0.3 % (0.0-3.0) Basophils (%) (Auto) % (0.0-2.0) 0.8 % (0.0-2.0) Differential Total Cells Counted 100 Neutrophils % (Manual) 93 % (45-75) Lymphocytes % (Manual) 4 % (20-45) Monocytes % (Manual) 3 % (1-10) Eosinophils % (Manual) 0 % (0-3) Basophils % (Manual) 0 % (0-2) Band Neutrophils 0 % (0-8) Platelet Estimate Adequate Platelet Morphology Normal Anisocytosis 1+ Sodium Level 136 MMOL/L (136-145) 135 MMOL/L (136-145) Potassium Level 3.8 MMOL/L (3.5-5.1) 3.4 MMOL/L (3.5-5.1) Chloride Level 100 MMOL/L (98-107) 103 MMOL/L (98-107) Carbon Dioxide Level 27 MMOL/L (21-32) 27 MMOL/L (21-32) Anion Gap 9 mmol/L (5-15) 5 mmol/L (5-15) Blood Urea Nitrogen 16 mg/dL (7-18) 11 mg/dL (7-18) Creatinine 1.4 MG/DL (0.55-1.30) 1.1 MG/DL (0.55-1.30) Estimat Glomerular Filtration Rate 55.1 mL/min (>60) > 60 mL/min (>60) Glucose Level 112 MG/DL (74-106) 95 MG/DL (74-106) Lactic Acid Level 2.20 mmol/L (0.4-2.0) 1.10 mmol/L (0.66-2.22) Calcium Level 8.6 MG/DL (8.5-10.1) 8.0 MG/DL (8.5-10.1) Total Bilirubin 0.8 MG/DL (0.2-1.0) 0.4 MG/DL (0.2-1.0) Aspartate Amino Transf (AST/SGOT) 31 U/L (15-37) 27 U/L (15-37) Alanine Aminotransferase (ALT/SGPT) 54 U/L (12-78) 45 U/L (12-78) Alkaline Phosphatase 42 U/L (46-116) 33 U/L (46-116) Total Protein 7.2 G/DL (6.4-8.2) 6.2 G/DL (6.4-8.2) Albumin 3.8 G/DL (3.4-5.0) 2.9 G/DL (3.4-5.0) Globulin 3.4 g/dL 3.3 g/dL Albumin/Globulin Ratio 1.1 (1.0-2.7) 0.9 (1.0-2.7) Lipase 124 U/L (73-393) Urine Color Pale yellow Urine Appearance Clear Urine pH 5 (4.5-8.0) Urine Specific [place] 1.010 (1.005-1.035) Urine Protein 1+ (NEGATIVE) Urine Glucose (UA) Negative (NEGATIVE) Urine Ketones 1+ (NEGATIVE) Urine Blood 2+ (NEGATIVE) Urine Nitrite Negative (NEGATIVE) Urine Bilirubin Negative (NEGATIVE) Urine Urobilinogen Normal MG/DL (0.0-1.0) Urine Leukocyte Esterase Negative (NEGATIVE) Urine RBC 0-2 /HPF (0 - 0) Urine WBC 0 /HPF (0 - 0) Urine Squamous Epithelial Cells Occasional /LPF Urine Bacteria Occasional /HPF (NONE) Test 04/10/20 05:10 White Blood Count 6.0 K/UL (4.8-10.8) Red Blood Count 5.39 M/UL (4.70-6.10) Hemoglobin 16.7 G/DL (14.2-18.0) Hematocrit 47.7 % (42.0-52.0) Mean Corpuscular Volume 89 FL (80-99) Mean Corpuscular Hemoglobin 31.1 PG (27.0-31.0) Mean Corpuscular Hemoglobin Concent 35.1 G/DL (32.0-36.0) Red Cell Distribution Width 13.4 % (11.6-14.8) Platelet Count 207 K/UL (150-450) Mean Platelet Volume 6.7 FL (6.5-10.1) Neutrophils (%) (Auto) 55.4 % (45.0-75.0) Lymphocytes (%) (Auto) 31.1 % (20.0-45.0) Monocytes (%) (Auto) 10.7 % (1.0-10.0) Eosinophils (%) (Auto) 1.5 % (0.0-3.0) Basophils (%) (Auto) 1.4 % (0.0-2.0) Sodium Level 138 MMOL/L (136-145) Potassium Level 3.4 MMOL/L (3.5-5.1) Chloride Level 104 MMOL/L (98-107) Carbon Dioxide Level 27 MMOL/L (21-32) Anion Gap 7 mmol/L (5-15) Blood Urea Nitrogen 13 mg/dL (7-18) Creatinine 1.1 MG/DL (0.55-1.30) Estimat Glomerular Filtration Rate > 60 mL/min (>60) Glucose Level 80 MG/DL (74-106) Calcium Level 7.8 MG/DL (8.5-10.1) Height (Feet): 5 Height (Inches): 0.58 Weight (Pounds): 172 Objective Physical Exam Sp02 EP Interpretation: reviewed, normal General: well appearing, no apparent distress Heent: bilateral eye PERRL, bilateral eye EOMI Neck: full range of motion, supple Respiratory: lungs clear, normal breath sounds, no rhonchi, no respiratory distress, no retraction, no wheezing Cardiovascular: normal peripheral pulses, no murmur, tachycardia Gastrointestinal: soft, non-distended, no guarding, tenderness - Mild periumbilical tenderness Neurologic: alert, oriented x3, no focal defects Skin: normal color, warm/dry Colt Hurd MD Apr 10, 2020 08:08
[2020-04-10 08:21] VITALS: BP 107/66
[2020-04-10] MEDS: Ciprofloxacin 500mg tab ORAL SCH (08:27)
--- NOTE | 2020-04-10 12:44 | Infectious Diseases Prog Note ---
Assessment/Plan Assessment/Plan IMPRESSION: 1. Sepsis resolving 2. Colitis may be infectious. 3. HIV. 4. Leukocytosis resolved 5. Hyperlipidemia. RECOMMENDATIONS: Continue Cipro and Flagyl X 3 days Clear for discharge to home Subjective ROS Limited/Unobtainable: No Constitutional: Reports: no symptoms, other - feels better Respiratory: Reports: no symptoms Gastrointestinal/Abdominal: Reports: diarrhea, other - improving Genitourinary: Reports: no symptoms Allergies: Coded Allergies: No Known Allergies (Unverified , 04/08/20) Objective Last 24 Hour Vital Signs Date Time Temp Pulse Resp B/P (MAP) Pulse Ox O2 Delivery O2 Flow Rate FiO2 04/10/20 08:21 97.0 74 20 107/66 (80) 99 04/10/20 04:00 98.1 82 20 111/65 (80) 97 04/10/20 00:00 98.7 80 18 108/67 (81) 95 04/09/20 21:00 Room Air 04/09/20 20:00 98.6 18 105/60 (75) 96 04/09/20 16:00 98.8 81 18 111/67 (82) 95 Height (Feet): 5 Height (Inches): 0.58 Weight (Pounds): 172 General Appearance: no acute distress HEENT: mucous membranes moist Respiratory/Chest: lungs clear Cardiovascular: normal rate Abdomen: soft, non tender Extremities: no edema Neurologic/Psychiatric: alert, oriented x 3, responsive Microbiology Date/Time Source Procedure Growth Status 04/08/20 21:00 Stool Clostridium difficile Toxin Assay - Final Complete 04/08/20 10:08 Nasopharynx SARS-CoV-2 RdRp Gene Assay - Final Complete Laboratory Tests Test 04/10/20 05:10 White Blood Count 6.0 K/UL (4.8-10.8) Red Blood Count 5.39 M/UL (4.70-6.10) Hemoglobin 16.7 G/DL (14.2-18.0) Hematocrit 47.7 % (42.0-52.0) Mean Corpuscular Volume 89 FL (80-99) Mean Corpuscular Hemoglobin 31.1 PG (27.0-31.0) H Mean Corpuscular Hemoglobin Concent 35.1 G/DL (32.0-36.0) Red Cell Distribution Width 13.4 % (11.6-14.8) Platelet Count 207 K/UL (150-450) Mean Platelet Volume 6.7 FL (6.5-10.1) Neutrophils (%) (Auto) 55.4 % (45.0-75.0) Lymphocytes (%) (Auto) 31.1 % (20.0-45.0) Monocytes (%) (Auto) 10.7 % (1.0-10.0) H Eosinophils (%) (Auto) 1.5 % (0.0-3.0) Basophils (%) (Auto) 1.4 % (0.0-2.0) Sodium Level 138 MMOL/L (136-145) Potassium Level 3.4 MMOL/L (3.5-5.1) L Chloride Level 104 MMOL/L (98-107) Carbon Dioxide Level 27 MMOL/L (21-32) Anion Gap 7 mmol/L (5-15) Blood Urea Nitrogen 13 mg/dL (7-18) Creatinine 1.1 MG/DL (0.55-1.30) Estimat Glomerular Filtration Rate > 60 mL/min (>60) Glucose Level 80 MG/DL (74-106) Calcium Level 7.8 MG/DL (8.5-10.1) L Current Medications Medications (Trade) Dose Ordered Sig/Juan Route PRN Reason Start Time Stop Time Status Last Admin Dose Admin Acetaminophen (Tylenol) 500 mg Q4H PRN ORAL Mild Pain (Pain Scale 1-3) 04/08/20 15:45 05/08/20 15:44 04/09/20 05:39 Acetaminophen (Tylenol) 500 mg Q4H PRN ORAL TEMP > 100.4 04/08/20 16:00 05/08/20 15:59 04/08/20 16:33 Ciprofloxacin (Cipro 500mg tab) 500 mg EVERY 12 HOURS ORAL 04/08/20 21:00 04/15/20 20:59 04/10/20 08:27 Metronidazole (Flagyl) 500 mg Q8HR ORAL 04/08/20 22:00 04/15/20 21:59 04/10/20 05:24 Ernst Parry MD Apr 10, 2020 12:44
--- NOTE | 2020-04-10 12:55 | Pulmonology Progress Note ---
Subjective ROS Limited/Unobtainable: No Interval Events: vomiting/ diarrhea improved Constitutional: Reports: no symptoms, other - feels better HEENT: Repors: no symptoms Respiratory: Reports: no symptoms Cardiovascular: Reports: no symptoms Genitourinary: Reports: no symptoms Neurologic: Reports: no symptoms Allergies: Coded Allergies: No Known Allergies (Unverified , 04/08/20) Objective Last 24 Hour Vital Signs Date Time Temp Pulse Resp B/P (MAP) Pulse Ox O2 Delivery O2 Flow Rate FiO2 04/10/20 08:21 97.0 74 20 107/66 (80) 99 04/10/20 04:00 98.1 82 20 111/65 (80) 97 04/10/20 00:00 98.7 80 18 108/67 (81) 95 04/09/20 21:00 Room Air 04/09/20 20:00 98.6 18 105/60 (75) 96 04/09/20 16:00 98.8 81 18 111/67 (82) 95 Intake and Output 04/09/20 04/10/20 19:00 07:00 Intake Total 840 ml 400 ml Balance 840 ml 400 ml Intake Oral 840 ml 400 ml # Voids 2 # Bowel Movements 3 1 Objective 04/10 pt feels better; saturating well on RA 04/09 pt still in pain; tachy; saturating well on RA General Appearance: WD/WN HEENT: normocephalic, atraumatic Respiratory: chest wall non-tender, lungs clear Cardiovascular: regular rhythm Abdomen: soft, non tender Microbiology Date/Time Source Procedure Growth Status 04/08/20 21:00 Stool Clostridium difficile Toxin Assay - Final Complete 04/08/20 10:08 Nasopharynx SARS-CoV-2 RdRp Gene Assay - Final Complete Laboratory Tests 04/10/20 05:10: White Blood Count 6.0, Red Blood Count 5.39, Hemoglobin 16.7, Hematocrit 47.7, Mean Corpuscular Volume 89, Mean Corpuscular Hemoglobin 31.1H, Mean Corpuscular Hemoglobin Concent 35.1, Red Cell Distribution Width 13.4, Platelet Count 207, Mean Platelet Volume 6.7, Neutrophils (%) (Auto) 55.4, Lymphocytes (%) (Auto) 3 1.1, Monocytes (%) (Auto) 10.7H, Eosinophils (%) (Auto) 1.5, Basophils (%) (Auto) 1.4, Sodium Level 138, Potassium Level 3.4L, Chloride Level 104, Carbon Dioxide Level 27, Anion Gap 7, Blood Urea Nitrogen 13, Creatinine 1.1, Estimat Glomerular Filtration Rate > 60, Glucose Level 80, Calcium Level 7.8L Current Medications Medications (Trade) Dose Ordered Sig/Juan Route PRN Reason Start Time Stop Time Status Last Admin Dose Admin Acetaminophen (Tylenol) 500 mg Q4H PRN ORAL Mild Pain (Pain Scale 1-3) 04/08/20 15:45 05/08/20 15:44 04/09/20 05:39 Acetaminophen (Tylenol) 500 mg Q4H PRN ORAL TEMP > 100.4 04/08/20 16:00 05/08/20 15:59 04/08/20 16:33 Ciprofloxacin (Cipro 500mg tab) 500 mg EVERY 12 HOURS ORAL 04/08/20 21:00 04/15/20 20:59 04/10/20 08:27 Metronidazole (Flagyl) 500 mg Q8HR ORAL 04/08/20 22:00 04/15/20 21:59 04/10/20 05:24 Assessment/Plan Assessment/Plan 1. Colitis. - per GI care 2. Interstitial lung disease. - upon further review of the CT of the chest, lung pathology is unlikely; no interstitial process seen - CXR showed no acute process as well 3. Leukocytosis. - On Abx cipro/flagyl per ID - WBC now wnl 4. Respiratory distress. - currently saturating well on RA - provided supplemental oxygen as needed 5. HIV, on medications. 6. Diarrhea. - C. diff neg - improved dc planning per Dr. Denny We will follow as pulmonologists as needed The care for this patient was discussed with my supervising physician. Time spent for this case was approximately 31 minutes. The patient was seen and examined at bedside and all new and available data was reviewed in the patients chart. I agree with the above findings, impression, and plan. (Patient was seen earlier today. Signature timestamp does not reflect patient encounter time) Kalin Tang MD Apr 10, 2020 12:55 Dustin Gr MD Apr 10, 2020 15:47
[2020-04-10] MEDS ORDERED: CIPROFLOXA500 MG/5 M PO (13:38)
[2020-04-10] MEDS ORDERED: METRONIDAZOLE500 MG ORAL (13:42)
--- NOTE | 2020-04-10 22:00 | General Progress Note ---
Subjective Allergies: Coded Allergies: No Known Allergies (Unverified , 04/08/20) Subjective Better today diarrhea resolved now soft stool eating OK Objective Last 24 Hour Vital Signs Date Time Temp Pulse Resp B/P (MAP) Pulse Ox O2 Delivery O2 Flow Rate FiO2 04/10/20 09:00 Room Air 04/10/20 08:21 97.0 74 20 107/66 (80) 99 04/10/20 04:00 98.1 82 20 111/65 (80) 97 04/10/20 00:00 98.7 80 18 108/67 (81) 95 Intake and Output 04/09/20 04/10/20 19:00 07:00 Intake Total 840 ml 400 ml Balance 840 ml 400 ml Intake Oral 840 ml 400 ml # Voids 2 # Bowel Movements 3 1 Laboratory Tests 04/10/20 05:10: White Blood Count 6.0, Red Blood Count 5.39, Hemoglobin 16.7, Hematocrit 47.7, Mean Corpuscular Volume 89, Mean Corpuscular Hemoglobin 31.1H, Mean Corpuscular Hemoglobin Concent 35.1, Red Cell Distribution Width 13.4, Platelet Count 207, Mean Platelet Volume 6.7, Neutrophils (%) (Auto) 55.4, Lymphocytes (%) (Auto) 31.1, Monocytes (%) (Auto) 10.7H, Eosinophils (%) (Auto) 1.5, Basophils (%) (Auto) 1.4, Sodium Level 138, Potassium Level 3.4L, Chloride Level 104, Carbon Dioxide Level 27, Anion Gap 7, Blood Urea Nitrogen 13, Creatinine 1.1, Estimat Glomerular Filtration Rate > 60, Glucose Level 80, Calcium Level 7.8L Height (Feet): 5 Height (Inches): 0.58 Weight (Pounds): 172 Objective WDWN NCAT supple CTA RR abd soft ND NT no edema Assessment/Plan Status: progressing Assessment/Plan: Assessment - Acute diarrheal syndrome - Colitis per CT appearance - HIV (+), well controlled Recommendations - IV hydration - po as tolerated - complete stool cultures - x Darwin Uriarte MD Apr 10, 2020 22:00
--- NOTE | 2020-04-12 09:42 | Discharge Summary ---
Discharge Summary Discharge Summary _ DATE OF ADMISSION: 04/08/2020 DATE OF DISCHARGE: 04/10/2020 DISCHARGED BY: Dr. Jesús Ramos CONSULTANTS: Dr. Tamir Gr BRIEF HOSPITAL COURSE: Patient is a 44-year-old male who came in with abdominal pain, diarrhea, mild vomiting for approximately 1 day. Patient has history of HIV, history of drug abuse, history of alcohol abuse, history of smoking. Upon evaluation at the ED, blood pressure was 108/73, heart rate was elevated to 133. He was afebrile and was saturating well on room air. Blood work showed elevated WBC to 19.6. Hemoglobin 19 and hematocrit 53. Electrolytes were normal. Lactic acid was 2.2. LFTs normal. Lipase normal. Urinalysis did not show any signs of infection. CT scan showed evidence of colitis and interstitial lung disease. COVID-19 test was negative. He was given ciprofloxacin and Flagyl. He was given IV hydration. He was then admitted for evaluation of colitis. Patient was admitted to monitored floor. He was started on clear liquid diet. He was continued on IV fluids for erythrocytosis. He was continued on ciprofloxacin and Flagyl pending culture results. Chest x-ray was reviewed by linux security administrator. Upon further review of the CT chest, lung pathology unlikely. There was no interstitial process seen. Chest x-ray showed no acute process as well. He was saturating well on room air. C. difficile toxin negative. Stool culture showed growth of Shigella. He was cleared for discharge home, to continue p.o. antibiotics. FINAL DIAGNOSIS: Acute diarrheal syndrome Colitis per CT appearance Abnormal CT scan, upon further review, lung pathology unlikely, no interstitial process seen HIV positive, well controlled Respiratory distress, saturating well on room air Hyperlipidemia Erythrocytosis, likely hemoconcentrated DISPOSITION: Patient was discharged home. DISCHARGE MEDICATIONS: Refer to Discharge Medication List. DISCHARGE INSTRUCTIONS: Follow-up in a week. I have been assigned to complete a discharge summary on this account, I was not involved with the patient's management.--ZUHAIR Samuel Jacqueline Robles NP Apr 12, 2020 09:42
--- NOTE | 2020-04-14 21:41 | Coder Physician Query ---
Clarification is required for compliance, coding accuracy, and to reflect severity of illness for this patient. Dear Dr. PATEL Date:04/14/20 Information Clerk: GURPREET Garcia Sepsis Query-- Patient is a 44-year-old male who came in with abdominal pain, diarrhea, mild vomiting for approximately 1 day. Patient has history of HIV, history of drug abuse, history of alcohol abuse, history of smoking. Upon evaluation at the ED, blood pressure was 108/73, heart rate was elevated to 133. He was afebrile and was saturating well on room air. Blood work showed elevated WBC to 19.6. Hemoglobin 19 and hematocrit 53. Electrolytes were normal. Lactic acid was 2.2. LFTs normal. Lipase normal. Urinalysis did not show any signs of infection. CT scan showed evidence of colitis and interstitial lung disease. COVID-19 test was negative. He was given ciprofloxacin and Flagyl. He was given IV hydration. He was then admitted for evaluation of colitis. C. difficile toxin negative. Stool culture showed growth of Shigella. No Blood cultures ordered. A posssible diagnois of SEPSIS was made in the medical record on MARISA/ Dr. Parry's consultation, no mention of sepsis on Discharge summary or f/u notes?? Upon review, it is difficult to determine whether this diagnosis has been ruled in, ruled out,or is still being worked up. Please indicate below the status of the aforementioned diagnosis. [] Ruled out [] Treated and resolve [] Presumed and treated [] Currently under treatment [] Still being worked-up Physician signature Date Please also document in your Progress Notes and/or Discharge Summary and indicate if the condition was present on admission. YUMI
== END 2020-04-10 14:05 | disposition home or self-care (01) | DRG 392 ==
LOC: EMR 09:09 → 4E 12:46 → EDBEDREQ 14:05
DX: K52.9 Noninfective gastroenteritis and colitis, unspecified (principal); J84.9 Interstitial pulmonary disease, unspecified; R09.02 Hypoxemia; K21.9 Gastro-esophageal reflux disease without esophagitis; E78.5 Hyperlipidemia, unspecified; R06.03 Acute respiratory distress; F10.11 Alcohol abuse, in remission; F19.11 Other psychoactive substance abuse, in remission
CPT/HCPCS: 36415; 71045; 74177; 80048; 80053; 81003; 83605; 83690; 85007; 85025; 87045; 87324; 96361; 96365; 96367; 96375; 99285; J2405; J7030; J8499; U0002